=== PATIENT | male | born 1945 | race Caucasian/White ===

== ENCOUNTER 2020-05-12 08:52 | Day surgery (SDC) | payer MEDICARE, OTHER ==
[~2020-05-12 08:52] MED LIST: Metoclopramide 10 MG/2 ML SDV IV PRN; Sodium Chloride 0.9% 1,000 ML IV SCH
[2020-05-12] MEDS ORDERED: Propofol 1,000 MG/100 ML SDV ONE (12:00)
--- NOTE | 2020-05-12 13:04 | OR ---
DATE OF OPERATION: 05/12/2020 SURGEON: Olman Cortes MD PREOPERATIVE DIAGNOSIS: Surveillance colonoscopy. POSTOPERATIVE DIAGNOSIS: Surveillance colonoscopy. PROCEDURE: Colonoscopy. ANESTHESIA: MAC. ESTIMATED BLOOD LOSS: None. COMPLICATIONS: None. INDICATION FOR THE PROCEDURE: The patient is a 74-year-old male, here today for a 5-year followup. He denies any change in bowel habits since the last scope. The last scope was normal. He had polyps on the previous scope. The patient has otherwise been doing DESCRIPTION OF PROCEDURE: Informed consent was obtained from the patient. The patient was taken to the operating room, placed on the table in the left lateral decubitus position. Monitored anesthesia care was administered. Digital rectal exam performed and it was normal. Colonoscope was then advanced through the anus, directed towards the cecum. Cecum was reached and identified by appendiceal orifice and ileocecal valve. The colonoscope was then slowly withdrawn. No polyps, no masses. No areas of ischemia or inflammation. No AV malformations and no diverticula noted. The rectum was also otherwise unremarkable. Colonoscope was then withdrawn. FINDINGS: Normal colonoscopy. RECOMMENDATIONS: I would not recommend any further screening colonoscopies due to age. DARNELL/CHRISTOPHER /[id number]
[2020-05-12 13:21] VITALS: BP 156/75; PULSE 66
== END 2020-05-12 13:05 | disposition home or self-care (01) ==
LOC: LB.SDS 08:52
PROVIDERS: ATTEND Surgery
DX: Z12.11 Encounter for screening for malignant neoplasm of colon (principal); E66.9 Obesity, unspecified; G47.9 Sleep disorder, unspecified; M25.512 Pain in left shoulder; M54.2 Cervicalgia; Z88.0 Allergy status to penicillin; Z68.35 Body mass index [BMI] 35.0-35.9, adult; Z86.010 Personal history of colon polyps; Z98.890 Other specified postprocedural states; Z80.0 Family history of malignant neoplasm of digestive organs; Z79.82 Long term (current) use of aspirin; Z79.899 Other long term (current) drug therapy
CPT/HCPCS: G0105; J2704; J7030

== ENCOUNTER 2024-09-21 11:15 | Emergency (ER) | payer MEDICARE, OTHER ==
[2024-09-21 11:51] VITALS: PULSE 61
[2024-09-21 11:56] LABS: BASOPHILS ABSOLUTE AUTO 0.03 K/uL (0.02-0.10); BASOPHILS PERCENT AUTO 0.4 % (0.0-0.5); EOSINOPHILS ABSOLUTE AUTO 0.29 K/uL (0.04-0.40); EOSINOPHILS PERCENT AUTO 3.4 % (1.0-5.0); HEMATOCRIT 46.3 % (40.0-54.0); HEMOGLOBIN 15.9 g/dL (13.0-18.0); LYMPHOCYTES ABSOLUTE AUTO 2.38 K/uL (1.50-4.00); LYMPHOCYTES PERCENT AUTO 27.9 % (20.0-40.0); MEAN CORPUSCULAR HEMOGLOBIN 33.2 pg (27.0-32.0); MEAN CORPUSCULAR HGB CONC 34.3 g/dL (31.0-35.0); MEAN CORPUSCULAR VOLUME 97 fL (76-96); MONOCYTES ABSOLUTE AUTO 1.04 K/uL (0.20-0.80); MONOCYTES PERCENT AUTO 12.2 % (3.0-10.0); NEUTROPHILS PERCENT AUTO 56.1 % (45.0-70.0); PLATELET COUNT,PLT 209 K/uL (150-400); RED BLOOD CELL COUNT 4.79 M/uL (4.50-6.50); RED CELL DISTRIBUTION WIDTH 13.4 % (11.0-16.0); WHITE BLOOD CELL COUNT,WBC 8.5 K/uL (4.0-11.0)
[2024-09-21 12:13] LABS: PTT,PARTIAL THROMBOPLSTIN TIME 24.5 SECONDS (24.4-33.2)
[2024-09-21 12:14] LABS: PROTHROMBIN TIME 10.4 sec (9.0-11.5)
[2024-09-21 12:17] LABS: A/G RATIO 1.2 (0.8-2.0); ALBUMIN 3.7 g/dL (3.4-5.0); ANION GAP 12.1 mmol/L (5.0-15.0); BUN/CREATININE RATIO 14.2 (6-25); CALCIUM 9.2 mg/dL (8.5-10.1); CARBON DIOXIDE,CO2 30.3 mmol/L (21.0-32.0); CREATININE 1.41 mg/dL (0.70-1.30); EST CRCL DRUG DOSING (CG) 44.57 mL/min; POTASSIUM,K 4.4 mmol/L (3.5-5.1); PROTEIN TOTAL,TP 6.8 g/dL (6.4-8.2)
[2024-09-21 12:21] VITALS: BP 159/76
== END 2024-09-21 12:30 | disposition home or self-care (01) ==
LOC: LB.ED 11:15
DX: M79.604 Pain in right leg (principal); I10 Essential (primary) hypertension; Z79.82 Long term (current) use of aspirin; Z79.899 Other long term (current) drug therapy; Z88.0 Allergy status to penicillin
CPT/HCPCS: 36415; 80053; 85025; 85379; 85610; 85730; 99283

== ENCOUNTER 2025-09-01 14:25 | Emergency (ER) | payer MEDICARE, OTHER ==
[2025-09-01 14:36] VITALS: BP 155/81; PULSE 62
== END 2025-09-01 15:16 | disposition home or self-care (01) ==
LOC: LB.ED 14:25
DX: L03.113 Cellulitis of right upper limb (principal); I10 Essential (primary) hypertension; Z88.0 Allergy status to penicillin; Z79.82 Long term (current) use of aspirin; Z79.899 Other long term (current) drug therapy
CPT/HCPCS: 99282; 99283